=== PATIENT | male | born 1940 | race Caucasian/White ===

== ENCOUNTER 2019-04-18 07:38 | Outpatient (RCR) | payer MEDICARE, SELFPAY ==
--- NOTE | 2019-02-28 08:06 | PCWOUND ---
WOCN NOTE patient called to cancel appointment, Rescheduled for next week.
== END 2019-04-24 23:59 | disposition home or self-care (01) ==
LOC: ANHWOC 07:38
PROVIDERS: PCP Internal Medicine; Visit Provider Internal Medicine
DX: L03.116 Cellulitis of left lower limb (principal); R60.0 Localized edema
CPT/HCPCS: 99212; A9270; G0463

== ENCOUNTER → 2019-04-25 09:24 | Outpatient (CLI) | payer MEDICARE, SELFPAY ==
--- NOTE | ~2019-04-25 | XR_ITS ---
EXAMINATION: XR chest 2V EXAM DATE: 04/25/2019 09:45 INDICATION: Shortness of breath. TECHNIQUE: Frontal and lateral projections of the chest obtained and reviewed. Comparison is made to prior examination from 07/07/2018. FINDINGS: The lungs are clear. There are no pleural effusions. The cardiomediastinal silhouette is within normal limits. There is no pneumothorax suspected. The bones and soft tissues are unremarkab le. IMPRESSION: Sternotomy wires are present without findings to suggest sternal dehiscence. Multilead pa cemaker. The lungs are clear. There are no pleural effusions. The cardiomediastinal silhouette is w ithin normal limits. There is no pneumothorax suspected. There are old right rib fractures and ther e is diffuse idiopathic skeletal hyperostosis. Accounting for differences in technique, there is no significant interval change. IMPRESSION: No acute cardiopulmonary findings. Reviewed, dictated and finalized at location B. 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 Multilead pacemaker. The lungs are clear. There are no pleural effus ions. The cardiomediastinal silhouette is within normal limits. There is no p neumothorax suspected. There are old right rib fractures and there is diffuse idiopathic skeletal hyperostosis. Accounting for differences in technique, the re is no significant interval change.
== END ==
PROVIDERS: PCP Internal Medicine; Visit Provider Internal Medicine
DX: R06.02 Shortness of breath (principal); E11.22 Type 2 diabetes mellitus with diabetic chronic kidney disease; N18.3 Chronic kidney disease, stage 3 (moderate)
CPT/HCPCS: 71046

== ENCOUNTER 2019-05-23 07:21 | Outpatient (RCR) | payer MEDICARE, SELFPAY | END 2019-07-31 23:59 | disposition home or self-care (01) | LOC: ANHWOC 07:21 | PROVIDERS: PCP Internal Medicine; Visit Provider Internal Medicine | DX: L03.116 Cellulitis of left lower limb (principal) | CPT/HCPCS: 99212; G0463 ==

== ENCOUNTER 2019-12-08 08:01 | Outpatient (RCR) | payer MEDICARE, SELFPAY ==
[2019-12-08 09:00] VITALS: BMI 42.3
== END 2020-02-22 13:32 | disposition home or self-care (01) ==
LOC: ANHWOC 08:01
PROVIDERS: PCP Internal Medicine; Visit Provider Internal Medicine
DX: L98.9 Disorder of the skin and subcutaneous tissue, unspecified (principal)
CPT/HCPCS: 99213; G0463

== ENCOUNTER 2019-12-13 08:13 | Outpatient (CLI) | payer MEDICARE, SELFPAY ==
--- NOTE | ~2019-12-13 | XR_ITS ---
EXAMINATION: XR chest 2V EXAM DATE: 12/13/2019 08:43 INDICATION: Cough. TECHNIQUE: Frontal and lateral projections of the chest obtained and reviewed. Comparison is made to prior examination from 04/25/2019. FINDINGS: Sternotomy wires are present without findings to suggest sternal dehiscence. There is quad ruple lead lead pacemaker/AICD device. There are old right-sided rib fractures. The lungs are clear. There are no pleural effusions. The cardiomediastinal silhouette is within normal limits. There is no pneumothorax suspected. Patient has diffuse idiopathic skeletal hyperostosis (DISH). Accounting for differences in technique, there is no significant interval change. IMPRESSION: No acute cardiopulmonary findings. Reviewed, dictated and finalized at location A.
== END 2019-12-13 08:14 | disposition home or self-care (01) ==
PROVIDERS: PCP Internal Medicine; Visit Provider Internal Medicine
DX: R05 Cough (principal)
CPT/HCPCS: 71046

== ENCOUNTER 2019-12-14 00:29 | Inpatient (IN) | payer MEDICARE, SELFPAY ==
[2019-12-14] VITALS (9 sets, daily range): BP systolic 100–146; BP diastolic 44–76; PULSE 74–117; RESP 12–27; TEMP 36.1–37; O2SAT 90–98; BMI 41.8
--- NOTE | ~2019-12-14 | US_ITS ---
EXAMINATION: US right upper quadrant DATE: 12/14/2019 09:30 INDICATION: Acute cholecystitis. TECHNIQUE: Multiple grayscale and Doppler ultrasound images of the abdomen were obtained. COMPARISON: CT abdomen and pelvis 12/14/2019 FINDINGS: The visualized portions of the head and body of the pancreas are normal. There is diffuse h epatic steatosis. The gallbladder is normal in size and contains gallstones. Gallbladder wall thicken ing is noted. There is no sonographic Nagy sign, but the patient has been receiving pain medication . The common duct is normal and measures 5 mm. IMPRESSION: 1. Acute cholecystitis. 2. Diffuse hepatic steatosis. Reviewed, dictated and finalized at location A.
--- NOTE | ~2019-12-14 | CT_ITS ---
EXAMINATION: CT abdomen pelvis wo con EXAM DATE: 12/14/2019 01:14 INDICATION: Right upper quadrant, epigastric pain for 5 days. TECHNIQUE: Spiral CT of the abdomen and pelvis was performed without contrast. Axial, coronal and s agittal images were reviewed. The dose-length product (DLP) for this examination was 1681.38 mGy-cm. The exposure was tailored according to patient size (auto mA exposure control), and iterative recon struction (ASIR) was used as additional dose reduction technique. There is no prior study for compar jada. FINDINGS: The liver, spleen, adrenal glands and pancreas are unremarkable. There is cholelithiasis w ith moderate inflammation surrounding the gallbladder, appearance consistent with acute cholecystitis . There is no nephrolithiasis or hydronephrosis. There is moderate prostatomegaly. The bladder is unremarkable. There is no retroperitoneal or pelvic lymphadenopathy. Small to moderate bilateral i nguinal fat-containing hernias. Moderate scattered aortic arteriosclerotic disease. The appendix is normal. The stomach and small bowel are unremarkable. There is expected amount of c olonic stool. No free intraperitoneal gas. Small right pleural effusion with adjacent subsegmenta l atelectasis. Sternotomy wires, pacemaker. The lung bases are unremarkable. There are no osteoblas tic or osteolytic lesions identified. Thoracic diffuse idiopathic skeletal hyperostosis. 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 Old right-sided rib fractures. IMPRESSION: 1. Acute cholecystitis. 2. Small right pleural effusion, adjacent atelectasis. 3. Other chronic findings. Reviewed, dictated and finalized at location A.
--- NOTE | ~2019-12-14 | US_ITS ---
EXAMINATION: US perc cholecystostomy w imag DATE: 12/15/2019 14:40 INDICATION: Acute cholecystitis. TECHNIQUE: The procedure including the risks, benefits, and alternatives was discussed with the patie nt. Risks discussed included bleeding including hemobilia, infection, and bile peritonitis. Oral and written consent were obtained. A timeout was performed to verify the patient's name, date of , and procedure to be performed. The patient was confirmed to be receiving appropriate antibiotic cov erage. The skin overlying the liver and gallbladder was prepped and draped in usual sterile fashion. Anesthetic was administered with 1% lidocaine subcutaneously. An 8.5 Fr catheter was inserted thro ugh liver parenchyma into the gallbladder by trocar technique. The metal stiffener and trocar needle were removed, and the pigtail tip was locked. Bile was aspirated and sent for culture. The catheter w as stitched to the skin with suture. There were no immediate complications. FINDINGS: Ultrasound images demonstrate the catheter within the gallbladder. 5 mL bile was aspirated. IMPRESSION: 1. Successful ultrasound-guided cholecystostomy tube placement. 2. 5 mm black bile was sent for aerobic and anaerobic cultures. 3. The catheter will be managed by Dr. Lobo. A catheter cholangiogram may be performed not less th an 48 hours after tube placement if clinically indicated to assess cystic duct patency. If cholecyste ctomy is not eventually performed and the infectious episode has resolved, the tube may be removed ov er a guidewire, preferably not less than 3 weeks after placement to allow time for a mature catheter tract to form to prevent bile leakage and peritonitis. Reviewed, dictated and finalized at location A. IMPRESSION: 1. Successful ultrasound-guided cholecystostomy tube placement. 2. 5 mm black bile was sent for aerobic and anaerobic cultures. 3. The catheter will be managed by Dr. Lobo. A catheter cholangiogram may be performed not less than 48 hours after tube placement if clinically indicated to assess cystic duct patency. If cholecystectomy is not eventually performed a nd the infectious episode has resolved, the tube may be removed over a guidewir e, preferably not less than 3 weeks after placement to allow time for a mature catheter tract to form to prevent bile leakage and peritonitis.
--- NOTE | 2019-12-14 00:50 | PC.NURSE ---
Pt states he is in too much pain to urinate at this time. will try again when he feels better.
[2019-12-14] MEDS: MORPHINE SULFATE (*CRX) 4 MG/ML INJ IV PUSH ×5 (00:53→22:45)
[2019-12-14] MEDS: ONDANSETRON INJ 4 MG/2 ML VIAL IV PUSH (00:53)
[2019-12-14 01:11] LABS: Basophils Absolute Auto 0.1 K/mm3 (0.0-0.1); Basophils Percent Auto 0.5 % (0.2-1.2); Hematocrit 40.3 % (42.0-52.0); Hemoglobin 13.5 g/dL (14.0-18.0); Immature Granulocyte Absolute 0.35 K/mm3 (0.00-0.031); Immature Granulocyte Percent A 1.6 % (0-0.5); Lymphocytes Absolute Auto 1.56 K/mm3 (0.9-3.2); Mean Corpuscular HGB Conc 33.5 g/dl (32-36); Mean Corpuscular Hemoglobin 28.8 pg (26-34); Mean Corpuscular Volume 86.1 fl (80-100); Mean Platelet Volume 10.7 fl (7.4-10.4); Monocytes Absolute Auto 1.9 K/mm3 (0.1-0.6); Monocytes Percent Auto 8.2 % (2.6-8.5); Neutrophils Absolute Auto 18.6 K/mm3 (1.3-6.7); Neutrophils Percent Auto 82.7 % (45.5-73.1); Platelet Count Result 223 k/mm3 (150-375); Red Blood Count 4.68 M/mm3 (4.6-6.20); Red Cell Distribution Width 13.7 % (11.5-14.5); White Blood Count 22.4 K/mm3 (4.5-10.0)
--- NOTE | 2019-12-14 01:50 | ED.ABDPAIN ---
HPI - Abdominal Pain General Chief Complaint: Abdominal Pain Stated Complaint: abd pain Time Seen by Provider: 12/14/19 00:41 History of Present Illness HPI narrative: Patient is a 79-year-old male who presents ER with upper abdominal pain. Intermittent over the last 5 days but markedly worsened this evening. It definitely worsens whenever he eats something. Pain is nonradiating. Worse with any type of movement. He had episodes of emesis this evening. Denies fevers or chills or sweats. No known gallbladder disease. Patient takes Xarelto and Plavix, his last dose of each medication was at 5 PM on 12/13/2019. Related Data Home Medications Medication Instructions Recorded Confirmed aspirin 81 mg PO DAILY 01/11/19 12/14/19 clopidogrel 75 mg PO DAILY 01/11/19 12/14/19 eplerenone 25 mg PO DAILY 01/11/19 12/14/19 finasteride 5 mg PO DAILY 01/11/19 12/14/19 fluticasone propionate 1 puff INHALATION DAILY 01/11/19 12/14/19 insulin aspart U-100 [Novolog 26 unit SUBCUT TID 01/11/19 12/14/19 U-100 Insulin aspart] insulin glargine 53 unit SUBCUT HS 01/11/19 12/14/19 insulin glargine 60 unit SUBCUT QAM 01/11/19 12/14/19 nitroglycerin 0.4 mg SUBLINGUAL PRN PRN 01/11/19 12/14/19 omega 3-auo-vvk-fish oil [Fish Oil] 1 cap PO DAILY 01/11/19 12/14/19 pantoprazole 40 mg PO QAM 01/11/19 12/14/19 potassium chloride 20 meq PO BID 01/11/19 12/14/19 sacubitril-valsartan 1 tablet PO BID 01/11/19 12/14/19 simvastatin 20 mg PO HS 01/11/19 12/14/19 tamsulosin 0.8 mg PO HS 01/11/19 12/14/19 loratadine 10 mg tablet 10 mg PO DAILY 04/11/19 12/14/19 ranolazine 1,000 mg 1,000 mg PO Q12H 04/11/19 12/14/19 tablet,extended release,12 hr torsemide 20 mg tablet 40 mg PO QAM tablet 04/11/19 12/14/19 carvedilol 3.125 mg PO BID 12/14/19 12/14/19 rivaroxaban [Xarelto] 20 mg PO QPM 12/14/19 12/14/19 Allergies Allergy/AdvReac Type Severity Reaction Status Date / Time metformin Allergy Mild Nausea and Verified 12/14/19 00:48 Vomiting atorvastatin Allergy Unknown Swelling Verified 12/14/19 04:58 iodine Allergy Unknown Hives Verified 12/14/19 00:48 iohexol Allergy Unknown Hives Verified 12/14/19 00:48 [From CONTRAST - CT, XRAY] meloxicam Allergy Unknown Unknown Verified 12/14/19 00:48 spironolactone Allergy Unknown Other Verified 12/14/19 00:48 Review of Systems Review of Systems: All systems reviewed & are unremarkable except as noted in HPI and below Constitutional: Constitutional: Denies chills, Denies fever(s) and Denies weakness ENT: Denies nasal congestion and Denies sore throat Cardiovascular: Cardiovascular: Denies chest pain, Denies rapid heart rate and Denies radiating jaw, neck or arm pain Respiratory: Respiratory: Denies cough and Denies dyspnea Gastrointestinal: Gastrointestinal: Reports abdominal pain, Denies diarrhea, Reports nausea and Reports vomiting PMFSH Past Medical History Medical History BPH (benign prostatic hyperplasia) CAD (coronary artery disease) Chronic combined systolic and diastolic CHF (congestive heart failure) CKD stage 3 due to type 2 diabetes mellitus Diabetes Dyslipidemia Essential hypertension Paroxysmal A-fib Surgical History Surgical History Hx of CABG Pacemaker Family History Family History Mother Diabetes mellitus Hypertension Sibling Diabetes mellitus Family history of obesity Hypertension Social History Social History Smoking packs per day: 4 Smoking cigarettes per day: 80.0 Years smoked: 8 Smoking pack-years: 32.00 Smoking status: Former smoker Tobacco type: cigarettes Alcohol intake: former Substance use: never Gender identity (if verbalized by the patient): Male Spiritual care concerns: No Exam Narrative: Exam Narrative: GENERAL: Uncomfortable
[2019-12-14 01:53] LABS: Add Urine Microscopic? YES; Appearance Urine Clear (Clear); Bilirubin Urine Negative (Negative); Blood Urine Negative (Negative); Color Urine Yellow (Yellow); Glucose Urine UA Negative (Negative); Ketones Urine Negative (Negative); Leukocyte Esterase Ur Negative LEU/UL (Negative); Mucus Urine Rare /lpf; Nitrate Urine Negative (Negative); Protein Urine 1+ mg/dL (Negative); RBC Urine 0-2 /hpf (0-2); Specific Grav Ur 1.014 (1.001-1.035); Squamous Epithelial Cell Urine Rare /hpf (Few); Urobilinogen Urine Negative mg/dL (<2.0); WBC Urine 0-3 /hpf
--- NOTE | 2019-12-14 01:56 | PC.NURSE ---
Pt. requesting medications. ERP notified. No further orders
[2019-12-14 02:01] LABS: Alanine Aminotransferase 17 U/L (4-50); Albumin Level 4.2 g/dL (3.5-5.1); Alkaline Phosphatase 84 U/L (38-126); Anion Gap 11 mmol/L (8-16); Aspartate Amino Transferase 24 U/L (17-59); Bilirubin,Total 1.3 mg/dL (0.2-1.3); Blood Urea Nitrogen 22 mg/dL (9-20); Calcium 9.5 mg/dL (8.4-10.2); Carbon Dioxide 28 mmol/L (22-30); Chloride 98 mmol/L (98-107); Estimated CRCL calculation 48 ml/min; Estimated Glomerular Filt Rate 45; Glucose 147 mg/dL (75-110); Lipase 32 U/L (23-300); Potassium 4.4 mmol/L (3.4-5.0); Sodium 137 mmol/L (137-145)
[2019-12-14] MEDS: SODIUM CHLORIDE 0.9% IV 1,000 ML 125 ML IV CONT (03:30)
--- NOTE | 2019-12-14 03:40 | ADMGEN ---
This patient, José Luis Zaidi Sr., was admitted to [facility] Surg Room 321-01. Patient/family oriented to hospital policies and general routines including ID bracelet, bed and alarms, visiting hours, pain management, procedures, bathroom and other care routines, personal items, smoking policy, room service/diet, and visiting hours. Valuables list has been completed. Information on how to activate the Rapid Response Team has been discussed. Patient/Family are encouraged to report perceived risks to care and to ask questions if they do not understand what they are told or what they should do.
--- NOTE | 2019-12-14 04:05 | PM.IMHP ---
H&P: HPI History of Present Illness Date/Time: 12/14/19 04:05 Chief complaint: cholecystitis Narrative: This is a pleasant 79-year-old morbidly obese diabetic male with known history of coronary artery disease status post CABG x3, s/p [place], combined systolic and diastolic heart failure, and paroxysmal atrial fibrillation on chronic Xarelto therapy among several other comorbidities who presented to the hospital with a complaint of right sided abdominal pain over the past 5 days. The patient describes that he started to have right-sided abdominal pain on Thursday evening and believes he may had cracked a rib. He called his PCP who had him undergo a chest x-ray which was unremarkable and he was told to call his PCP if his discomfort did not resolve within a week. Tonight he decided to come to the hospital as he was having severe right upper abdominal pain with associated nausea and vomiting this evening. He denies any fever, chills, chest pain, dysuria, hematuria, diarrhea, or rectal bleeding. patient has chronic lower extremity swelling which has not changed. patient was evaluated emergency room this evening and CT abdomen pelvis demonstrated cholelithiasis as well as jeanne cholecystic fat stranding in the right upper quadrant adjacent to the gallbladder suspicious for acute cholecystitis. Routine labs [place] [address]. ER provider has consulted general surgery who has asked that we admit the patient to the hospital and they will evaluate him in the morning. ER physician has treated the patient with Zosyn IV. Review of Systems Review of Systems: All systems reviewed & are unremarkable except as noted in HPI and below PMFSH Past Medical History Medical History BPH (benign prostatic hyperplasia) CAD (coronary artery disease) Chronic combined systolic and diastolic CHF (congestive heart failure) CKD stage 3 due to type 2 diabetes mellitus Diabetes Dyslipidemia Essential hypertension Paroxysmal A-fib Surgical History Surgical History Hx of CABG Pacemaker Family History Family History Mother Diabetes mellitus Hypertension Sibling Diabetes mellitus Family history of obesity Hypertension Social History Social History Smoking packs per day: 4 Smoking cigarettes per day: 80.0 Years smoked: 8 Smoking pack-years: 32.00 Smoking status: Former smoker Tobacco type: cigarettes Alcohol intake: former Substance use: never Gender identity (if verbalized by the patient): Male Spiritual care concerns: No Meds Home Medications and Allergies Home Medications Medication Instructions Recorded Confirmed Type aspirin 81 mg PO DAILY 01/11/19 12/08/19 History carvedilol 12.5 mg PO BID 01/11/19 12/08/19 History clopidogrel 75 mg PO DAILY 01/11/19 12/08/19 History dextran 70-hypromellose 1 drp OPHTHALMIC (EYE) 4-6XD PRN 01/11/19 12/08/19 History eplerenone 25 mg PO DAILY 01/11/19 12/08/19 History finasteride 5 mg PO DAILY 01/11/19 12/08/19 History fluticasone propionate 1 puff INHALATION DAILY 01/11/19 12/08/19 History insulin aspart U-100 [Novolog 18 unit SUBCUT TID 01/11/19 12/08/19 History U-100 Insulin aspart] insulin glargine 55 unit SUBCUT HS 01/11/19 12/08/19 History insulin glargine 60 unit SUBCUT QAM 01/11/19 12/08/19 History nitroglycerin 0.4 mg SUBLINGUAL PRN PRN 01/11/19 12/08/19 History omega 1-uvg-ycf-fish oil [Fish Oil] 1 cap PO DAILY 01/11/19 12/08/19 History pantoprazole 40 mg PO QAM 01/11/19 12/08/19 History potassium chloride 20 meq PO BID 01/11/19 12/08/19 History sacubitril-valsartan 1 tablet PO BID 01/11/19 12/08/19 History simvastatin 20 mg PO HS 01/11/19 12/08/19 History tamsulosin 0.8 mg PO HS 01/11/19 12/08/19 History loratadine 10 mg
[2019-12-14 04:46] LABS: Lactic Acid Reflex 0.8 mmol/L (0.7-2.1)
[2019-12-14] MEDS: SODIUM CHLORIDE 0.9% IV 1,000 ML 70 ML IV CONT ×2 (05:17→21:09)
[2019-12-14] MEDS: PANTOPRAZOLE SODIUM IV 40 MG VIAL IV PUSH (07:48)
--- NOTE | 2019-12-14 13:09 | PM.IMPN ---
Progress Note: A&P Assessment and Plan (1) Acute cholecystitis: Code(s): K81.0 - Acute cholecystitis Status: Acute Assessment and Plan: The patient has been admitted for observation to med surg, NPO, bowel rest, continue wide-spectrum antibiotics with IV Zosyn, blood cultures pending. Right upper quadrant ultrasound showed acute cholecystitis, diffuse hepatic steatosis. General surgery has been consulted by ER provider. Appreciate general surgery recommendations. Continue monitoring the patient. Pain control with IV narcotic medications, antiemetics, antipyretics.. (2) Acute on chronic renal failure: Code(s): N17.9 - Acute kidney failure, unspecified; N18.9 - Chronic kidney disease, unspecified Status: Acute Assessment and Plan: Will lightly hydrate the patient as he does have combined systolic and diastolic heart failure since he is NPO and with renal function. Urinalysis showed 1+ Protein and 5-9 hylan casts Monitor urine output and renal function. Renally dose medications. Avoid nephrotoxic agents. (3) Leukocytosis: Code(s): D72.829 - Elevated white blood cell count, unspecified Status: Acute Assessment and Plan: Appears to be secondary to acute cholecystitis. Continue broad-spectrum IV antibiotics. Monitor CBCD (4) Paroxysmal A-fib: Code(s): I48.0 - Paroxysmal atrial fibrillation Status: Chronic Assessment and Plan: Resume home medications when appropriate in after surgery consult on the patient. Currently rate controlled. (5) Chronic anticoagulation: Code(s): Z79.01 - senior care (current) use of anticoagulants Status: Chronic Assessment and Plan: We will hold Xarelto as the patient likely will need a cholecystectomy for his acute cholecystitis. (6) CAD (coronary artery disease): Qualifiers: Coronary Disease-Associated Artery/Lesion type: [place] artery [place] vs. transplanted heart: [place] heart Associated angina: without angina Qualified Code(s): I25.10 - Atherosclerotic heart disease of [place] coronary artery without angina pectoris Code(s): I25.10 - Atherosclerotic heart disease of [place] coronary artery without angina pectoris Status: Chronic Assessment and Plan: No chest pain tonight. Resume aspirin, Plavix, Ranexa, and Coreg when the patient is eating again. (7) Dyslipidemia: Code(s): E78.5 - Hyperlipidemia, unspecified Status: Chronic Assessment and Plan: Resume simvastatin when the patient is eating again. (8) LEANDRO (obstructive sleep apnea): Code(s): G47.33 - Obstructive sleep apnea (adult) (pediatric) Status: Chronic Assessment and Plan: Continue home CPAP. (9) Essential hypertension: Code(s): I10 - Essential (primary) hypertension Status: Chronic Assessment and Plan: Stable. Resume home oral antihypertensives when the patient is eating again. Monitor blood pressure. P.r.n. IV hydralazine with parameters as ordered. (10) Chronic combined systolic and diastolic CHF (congestive heart failure): Code(s): I50.42 - Chronic combined systolic (congestive) and diastolic (congestive) heart failure Status: Chronic Assessment and Plan: Chronic. Euvolemic at this time. Monitor fluid status and daily weights. We will consider intermittent IV Lasix bolus if necessary. Resume home CHF medications when the patient is eating again. (11)
[2019-12-14 13:11] LABS: Glucose Point of Care 170 (65-105)
--- NOTE | 2019-12-14 15:05 | PCOTNOTE ---
OT evaluation attempted. Patient declined due to abdominal pain, he states that movement increases his pain. Nurse notified, will follow.
[2019-12-14] MEDS: BENZONATATE 100 MG CAPSULE PO ×2 (16:22→22:48)
--- NOTE | 2019-12-14 17:21 | PM.CNGS ---
Assessment and Plan Assessment and plan (1) Acute cholecystitis: Code(s): K81.0 - Acute cholecystitis Status: Acute Assessment and Plan: With cholelithiasis by both CT and ultrasound I have discussed the risks, benefits, possible complications of further treatment of his acute cholecystitis. His episodes started on Thursday of last week more than 72 hours ago. This puts him at a high risk category for requiring an open cholecystectomy versus being able to do it laparoscopically. Patient is also high risk for any general anesthesia in view of his current respiratory status with a significant cough along with his known CHF and cardiac history. Therefore, I discussed with the patient and his daughter that I would recommend once his Xeralto has wore off that we consider performing an ultrasound-guided cholecystostomy tube drainage of the gallbladder and wait for him to have a little bit better health before proceeding to cholecystectomy if at all. Because his medical artist who has done many of his stents is in [place] at the [facility], Perhaps would be best to have his elective surgery done there with his medical artist available to monitor his heart and cardiac status pre and postoperatively. Doing the cholecystostomy I think will perhaps allow us to temporize and then work with them to have patient have the procedure done where his heart procedures have been done, since they may know his heart situation well. He can then get cardiac clearance for elective general anesthesia and have a general surgeon over there, that can coordinate with his medical artist, consider doing the procedure and removing the cholecystostomy tube at that time in the somewhere around 4 weeks to a month from now. They were amenable to same and I will discuss this with Radiology and see how soon after his last doses are also they would be comfortable proceeding. 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 Apparently has stage 2 chronic kidney disease by history (4) Essential hypertension: Code(s): I10 - Essential (primary) hypertension Status: Chronic Assessment and Plan: long-term, Rx per hospitalist (5) CKD stage 3 due to type 2 diabetes mellitus: Code(s): E11.22 - Type 2 diabetes mellitus with diabetic chronic kidney disease; N18.3 - Chronic kidney disease, stage 3 (moderate) Status: Acute (6) Dyslipidemia: Code(s): E78.5 - Hyperlipidemia, unspecified Status: Chronic (7) CAD (coronary artery disease): Qualifiers: Associated angina: without angina Coronary Disease-Associated Artery/Lesion type: [place] artery [place] vs. transplanted heart: [place] heart Qualified Code(s): I25.10 - Atherosclerotic heart disease of [place] coronary artery without angina pectoris Code(s): I25.10 - Atherosclerotic heart disease of [place] coronary artery without angina pectoris Status: Chronic Assessment and Plan: continue home medications when no longer NPO other than anticoagulants and the anti-platelet therapy since we may need to do a procedure. (8) Hx of CABG: Code(s): Z95.1 - Presence of aortocoronary bypass graft Status: Acute (9) Paroxysmal A-fib: Code(s): I48.0 - Paroxysmal atrial fibrillation Status: Chronic (10) LEANDRO (obstructive sleep apnea): Code(s): G47.33 - Obstructive sleep apnea (adult) (pediatric) Status: Chronic (11) Chronic combined systolic and diastolic CHF (congestive heart failure): Code(s): I50.42 - Chronic combined
[2019-12-14 17:48] LABS: Glucose Point of Care 154 (65-105)
[2019-12-14] MEDS: NEOMYCIN/POLYMYXIN/BACITRACIN OINTMENT 15 GM TUBE 1 APPLIC TOPICAL (18:55)
[2019-12-14] MEDS: FLUTICASONE PROPIONATE 0.05% NA SPR 16 GM BTL (*BKC) 1 SPRAY NASAL (21:07)
[2019-12-15] VITALS (7 sets, daily range): BP systolic 128–145; BP diastolic 50–69; PULSE 88–104; RESP 18–22; TEMP 36.6–37.4; O2SAT 90–94
[2019-12-15] MEDS: INSULIN ASPART (*BKC) 100 UNITS/ML SUB-Q (00:21)
[2019-12-15 00:35] LABS: Glucose Point of Care 241 (65-105)
[2019-12-15 05:59] LABS: Glucose Point of Care 175 (65-105)
[2019-12-15 06:25] LABS: Basophils Absolute Auto 0.1 K/mm3 (0.0-0.1); Basophils Percent Auto 0.5 % (0.2-1.2); Eosinophils Absolute Auto 0.1 K/mm3 (0-0.3); Eosinophils Percent Auto 0.5 % (0-4.4); Hematocrit 37.6 % (42.0-52.0); Hemoglobin 12.4 g/dL (14.0-18.0); Immature Granulocyte Absolute 0.26 K/mm3 (0.00-0.031); Immature Granulocyte Percent A 1.5 % (0-0.5); Lymphocytes Absolute Auto 1.68 K/mm3 (0.9-3.2); Mean Corpuscular Hemoglobin 28.6 pg (26-34); Mean Corpuscular Volume 86.6 fl (80-100); Monocytes Absolute Auto 1.8 K/mm3 (0.1-0.6); Monocytes Percent Auto 10.6 % (2.6-8.5); Neutrophils Absolute Auto 12.9 K/mm3 (1.3-6.7); Neutrophils Percent Auto 76.9 % (45.5-73.1); Platelet Count Result 210 k/mm3 (150-375); Red Blood Count 4.34 M/mm3 (4.6-6.20); Red Cell Distribution Width 13.8 % (11.5-14.5); White Blood Count 16.8 K/mm3 (4.5-10.0)
[2019-12-15 06:31] LABS: INR 1.7; Prothrombin Time 19.6 Seconds (11.1-14.7)
[2019-12-15 06:35] LABS: Lipase 35 U/L (23-300); Magnesium 2.3 mg/dL (1.6-2.3)
[2019-12-15 06:37] LABS: Alanine Aminotransferase 20 U/L (4-50); Albumin Level 3.6 g/dL (3.5-5.1); Alkaline Phosphatase 80 U/L (38-126); Anion Gap 11 mmol/L (8-16); Aspartate Amino Transferase 25 U/L (17-59); Bilirubin,Total 1.2 mg/dL (0.2-1.3); Blood Urea Nitrogen 29 mg/dL (9-20); Calcium 8.8 mg/dL (8.4-10.2); Carbon Dioxide 25 mmol/L (22-30); Chloride 99 mmol/L (98-107); Estimated CRCL calculation 45 ml/min; Estimated Glomerular Filt Rate 42; Glucose 196 mg/dL (75-110); Sodium 135 mmol/L (137-145)
[2019-12-15] MEDS: MORPHINE SULFATE (*CRX) 4 MG/ML INJ IV PUSH ×3 (06:45→12:51)
[2019-12-15 08:37] LABS: Glucose Point of Care 209 (65-105)
[2019-12-15] MEDS: FLUTICASONE PROPIONATE 0.05% NA SPR 16 GM BTL (*BKC) 1 SPRAY NASAL ×2 (09:32→21:30)
--- NOTE | 2019-12-15 09:44 | PM.IMPN ---
Progress Note: A&P Assessment and Plan (1) Acute cholecystitis: Code(s): K81.0 - Acute cholecystitis Status: Acute Assessment and Plan: The patient has been admitted for observation to med surg, NPO, bowel rest, continue wide-spectrum antibiotics with IV Zosyn, blood cultures pending. Right upper quadrant ultrasound showed acute cholecystitis, diffuse hepatic steatosis. General surgery evaluated the patient and since his symptoms began greater than 48 hours ago and with his cardiac history. the plan is for the patient to go for a percutaneous drain of the gallbladder to be placed today by IR. 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 Patient is still having pain on states it is slightly better today. He was able to tolerate clear liquid diet last night. He is NPO at this time for perc Drain Continue monitoring the patient. Pain control with IV narcotic medications, antiemetics, antipyretics. 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 creatinine is still elevated is morning 1.6. His labs from over 1 year ago showing normal creatinine of 0.9-1. Will continue monitoring once he has percutaneous drain in place he will be given food in be able to drink. At this time we are being cautious due to CHF history. Urinalysis showed 1+ Protein and 5-9 hylan casts Monitor urine output and renal function. Renally dose medications. Avoid nephrotoxic agents. (3) Leukocytosis: Onset Date: ~11/2019 Code(s): D72.829 - Elevated white blood cell count, unspecified Status: Acute Assessment and Plan: Appears to be secondary to acute cholecystitis. Improved with IV antibiotics. Continue broad-spectrum IV antibiotics. Monitor CBCD (4) Paroxysmal A-fib: Code(s): I48.0 - Paroxysmal atrial fibrillation Status: Chronic Assessment and Plan: Resume home medications when appropriate in after surgery consult on the patient. Currently rate controlled. (5) Chronic anticoagulation: Onset Date: Unknown Code(s): Z79.01 - terminal operations supervisor (current) use of anticoagulants Status: Chronic Assessment and Plan: We will hold Xarelto as the patient likely will need a cholecystectomy for his acute cholecystitis. (6) CAD (coronary artery disease): Qualifiers: Coronary Disease-Associated Artery/Lesion type: [place] artery [place] vs. transplanted heart: [place] heart Associated angina: without angina Qualified Code(s): I25.10 - Atherosclerotic heart disease of [place] coronary artery without angina pectoris Code(s): I25.10 - Atherosclerotic heart disease of [place] coronary artery without angina pectoris Status: Chronic Assessment and Plan: No chest pain tonight. Resume aspirin, Plavix, Ranexa, and Coreg when the patient is eating again. (7) Dyslipidemia: Code(s): E78.5 - Hyperlipidemia, unspecified Status: Chronic Assessment and Plan: Resume simvastatin when the patient is eating again. (8) LEANDRO (obstructive sleep apnea): Code(s): G47.33 - Obstructive sleep apnea (adult) (pediatric) Status: Chronic Assessment
--- NOTE | 2019-12-15 09:50 | PM.PNGS ---
Progress Note: A&P Assessment and Plan (1) Acute cholecystitis: Onset Date: ~12/11/19 Code(s): K81.0 - Acute cholecystitis Status: Acute Assessment and Plan: Have discussed with Radiology and hospitalist service. In view of the patient's significant medical comorbidities and the time since the onset of his acute cholecystitis I believe he is best served with a percutaneous cholecystostomy tube placement. Will type and screen so that we could have platelets available if there were bleeding problems at the time of the procedure in view of the patient's Plavix use. This afternoon he will have been off his Xarelto and his Plavix for approximately 48 hours so we are planning to proceed sometime this afternoon with a percutaneous cholecystostomy tube placement. The risks, benefits,and possible complications of this have been discussed with the patient including the possibly of bleeding in view of his anticoagulants. He understands and wishes to proceed. 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 We are using SCD hose to help prevent DVT as he comes off his anticoagulation. (3) Leukocytosis: Onset Date: ~11/2019 Code(s): D72.829 - Elevated white blood cell count, unspecified Status: Acute Assessment and Plan: Most likely secondary to 1. Above. slightly improved overnight. (4) Acute on chronic renal failure: Onset Date: Unknown Code(s): N17.9 - Acute kidney failure, unspecified; N18.9 - Chronic kidney disease, unspecified Status: Acute (5) Diabetes: Onset Date: Unknown Qualifiers: Diabetes mellitus type: type 2 Diabetes mellitus terminal gauger insulin use: with chcf use Diabetes mellitus complication status: with circulatory complication Diabetes mellitus complication detail: with other circulatory complications Qualified Code(s): E11.59 - Type 2 diabetes mellitus with other circulatory complications; Z79.4 - assisted (current) use of insulin Code(s): E11.9 - Type 2 diabetes mellitus without complications Status: Chronic Assessment and Plan: Blood sugar still running in the 200s. (6) Chronic combined systolic and diastolic CHF (congestive heart failure): Onset Date: Unknown Code(s): I50.42 - Chronic combined systolic (congestive) and diastolic (congestive) heart failure Status: Chronic Assessment and Plan: Hospitalist Service is following and treating this. Additional Plan Patient has been seen by our wound clinic here as an outpatient. They will follow peripherally and will put in orders for his venous stasis ulcers on the right leg. Subjective Subjective Date/Time Seen: 12/15/19 08:50 patient is sitting up in bed when I arrived. States he still has a lot of epigastric and right upper quadrant pain. Is fairly well controlled with Q to our morphine. He is also receiving around the clock Tylenol. Patient's blood sugar was in the 200 this morning. He has not had a bowel movement since he arrived at the hospital. He is passing some flatus. Wishes to proceed with percutaneous cholecystostomy tube when all feel that it is safe. Review of Systems Constitutional: Constitutional: Reports as per HPI and Reports weakness ENT: Reports other (Mucous Membranes moist.) Cardiovascular: Cardiovascular: Denies chest pain and Reports dyspnea ( If he gets a coughing spell) Respiratory: Respiratory: Denies pain on inspiration, Reports dyspnea ( does have some if he coughs.), Denies stridor and Denies wheezing Gastrointestinal: Gastrointestinal: Reports abdominal pain ( Mainly right upper quadrant epigastric), Reports constipation, Reports dyspepsia, Denies nausea and Denies vomiting Genitourinary: Gen
[2019-12-15] MEDS: BENZONATATE 100 MG CAPSULE PO (11:09)
[2019-12-15] MEDS: NEOMYCIN/POLYMYXIN/BACITRACIN OINTMENT 15 GM TUBE 1 APPLIC TOPICAL (11:23)
[2019-12-15] MEDS: PANTOPRAZOLE SODIUM IV 40 MG VIAL IV PUSH (11:24)
[2019-12-15] MEDS: SILVERGEL (ELTA) 45 ML 1 APPLIC TOPICAL (11:24)
[2019-12-15] MEDS: SODIUM CHLORIDE 0.9% IV 1,000 ML 70 ML IV CONT (12:13)
[2019-12-15 12:57] LABS: Glucose Point of Care 226 (65-105)
--- NOTE | 2019-12-15 14:04 | PC.NURSE ---
On 12/15/19, the student, [ Rosario Jeffers], provided care and completed [facility] documentation on this patient. I have reviewed the student's documentation and agree with the findings.
[2019-12-15] MEDS: BISACODYL 10 MG SUPPOSITORY RECTAL (15:02)
--- NOTE | 2019-12-15 15:38 | PCPTNOTE ---
Mr. Zaidi unavailable for PT eval in am due to receiving a procedure. Attempt eval at a later time. Hayley Guillen PT
[2019-12-15 18:04] LABS: Glucose Point of Care 234 (65-105)
[2019-12-16] MEDS: INSULIN ASPART (*BKC) 100 UNITS/ML SUB-Q ×5 (00:28→23:43)
[2019-12-16 00:35] LABS: Glucose Point of Care 329 (65-105)
[2019-12-16] MEDS: MORPHINE SULFATE (*CRX) 4 MG/ML INJ IV PUSH ×3 (01:45→09:03)
[2019-12-16] MEDS: SODIUM CHLORIDE 0.9% IV 1,000 ML 70 ML IV CONT (05:43)
[2019-12-16 06:00] VITALS: BP 129/60; PULSE 72; RESP 18; TEMP 36.8; O2SAT 97
[2019-12-16 06:19] LABS: Glucose Point of Care 203 (65-105)
[2019-12-16 06:40] LABS: Basophils Absolute Auto 0.1 K/mm3 (0.0-0.1); Eosinophils Absolute Auto 0.2 K/mm3 (0-0.3); Eosinophils Percent Auto 1.9 % (0-4.4); Hematocrit 36.3 % (42.0-52.0); Hemoglobin 11.6 g/dL (14.0-18.0); Immature Granulocyte Absolute 0.15 K/mm3 (0.00-0.031); Immature Granulocyte Percent A 1.4 % (0-0.5); Lymphocytes Absolute Auto 1.55 K/mm3 (0.9-3.2); Lymphocytes Percent Auto 14.2 % (18.3-44.2); Mean Corpuscular Volume 90.8 fl (80-100); Mean Platelet Volume 10.5 fl (7.4-10.4); Monocytes Absolute Auto 1.2 K/mm3 (0.1-0.6); Monocytes Percent Auto 10.5 % (2.6-8.5); Neutrophils Absolute Auto 7.8 K/mm3 (1.3-6.7); Platelet Count Result 209 k/mm3 (150-375); Red Cell Distribution Width 13.9 % (11.5-14.5); White Blood Count 10.9 K/mm3 (4.5-10.0)
[2019-12-16 06:56] LABS: Alanine Aminotransferase 17 U/L (4-50); Albumin Level 3.5 g/dL (3.5-5.1); Alkaline Phosphatase 87 U/L (38-126); Anion Gap 9 mmol/L (8-16); Aspartate Amino Transferase 20 U/L (17-59); Bilirubin,Total 1.1 mg/dL (0.2-1.3); Blood Urea Nitrogen 37 mg/dL (9-20); Calcium 8.6 mg/dL (8.4-10.2); Carbon Dioxide 27 mmol/L (22-30); Chloride 99 mmol/L (98-107); Estimated CRCL calculation 45 ml/min; Estimated Glomerular Filt Rate 42; Glucose 228 mg/dL (75-110); Lipase 34 U/L (23-300); Potassium 4.1 mmol/L (3.4-5.0); Sodium 135 mmol/L (137-145)
--- NOTE | 2019-12-16 08:26 | PM.PNGS ---
Progress Note: A&P Assessment and Plan (1) Acute cholecystitis: Onset Date: ~12/11/19 Code(s): K81.0 - Acute cholecystitis Status: Acute Assessment and Plan: Have discussed with Radiology and hospitalist service. In view of the patient's significant medical comorbidities and the time since the onset of his acute cholecystitis I believe he is best served with a percutaneous cholecystostomy tube placement. Will type and screen so that we could have platelets available if there were bleeding problems at the time of the procedure in view of the patient's Plavix use. Patient underwent the ultrasound-guided tube placement yesterday afternoon without incident. Cultures are pending at this time period would recommend continuing Zosyn until cultures returned then outpatient oral antibiotics to complete a 10 day course could be decided upon based on the sensitivities from the cultures that were obtained from the bile at the time of his tube placement. His diet could be gradually advanced to diabetic low-fat diet. I also believe that in view of his significant cardiac disease he should consider having his elective laparoscopic cholecystectomy done at [facility] in [place] to see Dr. Bosch his district captain to get cardiac clearance and make plans for that procedure hopefully somewhere around 4 weeks from now. Patient and his daughter both realize that he is at high risk for this procedure. 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 We are using SCD hose to help prevent DVT as he comes off his anticoagulation. labs this morning 12/16/2019 appear to be stable. Therefore could start his Plavix this morning and resume his Xeralto with the evening dose tonight. (3) Leukocytosis: Onset Date: ~11/2019 Code(s): D72.829 - Elevated white blood cell count, unspecified Status: Acute Assessment and Plan: Most likely secondary to 1. Above. improved overnight. 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 (6) Chronic combined systolic and diastolic CHF (congestive heart failure): Onset Date: Unknown Code(s): I50.42 - Chronic combined systolic (congestive) and diastolic (congestive) heart failure Status: Chronic Assessment and Plan: Hospitalist Service is following and treating this. Additional Plan Patient has been seen by our wound clinic here as an outpatient. They will follow peripherally and will put in orders for his venous stasis ulcers on the right leg. Subjective Subjective Date/Time Seen: 12/16/19 08:26 Patient up in the bathroom this morning when I came by. States he did not have a bowel movement after the Dulcolax supp yesterday but feels as if he may this morning. Right upper quadrant pain has improved since placement of the cholecystostomy tube. He now tolerating a clear liquid diet. Review of Systems Constitutional: Constitutional: Rep
[2019-12-16 08:56] LABS: Glucose Point of Care 225 (65-105)
[2019-12-16] MEDS: SILVERGEL (ELTA) 45 ML 1 APPLIC TOPICAL (09:05)
[2019-12-16] MEDS: BENZONATATE 100 MG CAPSULE PO ×2 (09:05→21:00)
[2019-12-16] MEDS: FLUTICASONE PROPIONATE 0.05% NA SPR 16 GM BTL (*BKC) 1 SPRAY NASAL ×2 (09:05→20:49)
[2019-12-16] MEDS: NEOMYCIN/POLYMYXIN/BACITRACIN OINTMENT 15 GM TUBE 1 APPLIC TOPICAL (09:06)
[2019-12-16] MEDS: CLOPIDOGREL BISULFATE 75 MG TABLET PO (09:10)
[2019-12-16] MEDS: LORATADINE 10 MG TABLET PO (09:10)
[2019-12-16] MEDS: FLUTICASONE PROP 44 MCG (*SP) 10.6 GM 1 PUFF INHALATION (09:26)
--- NOTE | 2019-12-16 09:35 | PM.IMPN ---
Progress Note: A&P Assessment and Plan (1) Acute cholecystitis: Code(s): K81.0 - Acute cholecystitis Status: Acute Assessment and Plan: The patient has been admitted for observation to med surg, NPO, bowel rest, continue wide-spectrum antibiotics with IV Zosyn, blood cultures pending. Right upper quadrant ultrasound showed acute cholecystitis, diffuse hepatic steatosis. General surgery evaluated the patient and since his symptoms began greater than 48 hours ago and with his cardiac history, they decided to place a percutaneous drain of the gallbladder on 12/15/2019. Surgery once to continue monitoring his symptoms and output. Continue IV antibiotics until sensitivity results come back for gallbladder material culture. Dr. Lobo recommends the patient following up with his mason tender as an outpatient for cardiac clearance for surgery. Dr. Lobo also recommends the patient have surgery at [facility] where his mason tender is located in case there is any issues. We can still give him Dr. Lobo's information in case he wants to come here for surgery. Patient is feeling better after perc drain placed. Now with some increased pain secondary to coughing. He was able to tolerate clear liquid diet last night and this morning. Continue monitoring the patient. Pain control with IV narcotic medications, antiemetics, antipyretics. 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 creatinine is still elevated is morning 1.6. His labs from over 1 year ago showing normal creatinine of 0.9-1. He is now eating and drinking. I will continue IV fluid hydration 70 cc/hour and continue monitoring his fluid status. At this time he remains euvolemic. Monitor urine output and renal function. Renally dose medications. Avoid nephrotoxic agents. (3) Leukocytosis: Onset Date: ~11/2019 Code(s): D72.829 - Elevated white blood cell count, unspecified Status: Acute Assessment and Plan: Appears to be secondary to acute cholecystitis. Improved with IV antibiotics. Continue broad-spectrum IV antibiotics. Monitor CBCD (4) Paroxysmal A-fib: Code(s): I48.0 - Paroxysmal atrial fibrillation Status: Chronic Assessment and Plan: Patient is in AFib but is rate has been controlled. I discussed with surgery who feel he can restart his Xarelto this evening Will restart his blood pressure/beta-rod medications when we can. At this time I do not think his blood pressure would tolerate most of his meds. Continue monitoring. (5) Chronic anticoagulation: Onset Date: Unknown Code(s): Z79.01 - [facility] (current) use of anticoagulants Status: Chronic Assessment and Plan: Will restart Xarelto this evening and Plavix was restarted this morning after having perc drain placed yesterday. (6) CAD (coronary artery disease): Qualifiers: Associated angina: without angina Coronary Disease-Associated Artery/Lesion type: [place] artery [place] vs. transplanted heart: [place] heart Qualified Code(s): I25.10 - Atherosclerotic heart disease of [place] coronary artery without angina pectoris Code(s): I25.10 - Atherosclerotic heart disease of [place] coronary artery without angina pectoris Status: Chronic Assessment and Plan: No chest pain tonight. Will continue Plavix and Xarelto. Usually we do not use aspirin
--- NOTE | 2019-12-16 10:59 | PCDIET ---
Patient seen today for diabetic/low fat education. See Nutritional Teaching Intervention. Patient has my card for any further questions or concerns.
[2019-12-16] MEDS: PANTOPRAZOLE SODIUM IV 40 MG VIAL IV PUSH (11:30)
[2019-12-16] MEDS: HYDROcodone/acetaminophen (*CRX) 5-325 MG TABLET 1 TAB PO ×2 (11:30→19:27)
[2019-12-16 15:19] VITALS: BP 147/63; PULSE 82; RESP 20; TEMP 36.5; O2SAT 94
[2019-12-16] MEDS: RIVAROXABAN 20 MG TABLET PO (17:19)
[2019-12-16 17:30] VITALS: BP 123/65; PULSE 78; RESP 18; TEMP 36.6; O2SAT 96
[2019-12-16 18:38] LABS: Glucose Point of Care 332 (65-105)
[2019-12-16 18:46] LABS: Glucose Point of Care 340 (65-105)
[2019-12-16 19:48] LABS: SARS-CoV-2 RNA PCR Negative
[2019-12-16 20:00] VITALS: BP 132/62; PULSE 87; RESP 18; TEMP 36.9; O2SAT 96
[2019-12-16 23:48] LABS: Glucose Point of Care 354 (65-105)
[2019-12-17] MEDS: HYDROcodone/acetaminophen (*CRX) 5-325 MG TABLET 1 TAB PO ×2 (00:15→06:31)
[2019-12-17] MEDS: SODIUM CHLORIDE 0.9% IV 1,000 ML 70 ML IV CONT (03:14)
[2019-12-17 06:00] VITALS: BP 141/57; PULSE 68; RESP 20; TEMP 36.5; O2SAT 98
[2019-12-17] MEDS: INSULIN ASPART (*BKC) 100 UNITS/ML SUB-Q ×2 (06:31→12:38)
[2019-12-17 06:44] LABS: Glucose Point of Care 265 (65-105)
[2019-12-17 06:59] LABS: Hematocrit 35.1 % (42.0-52.0); Hemoglobin 11.5 g/dL (14.0-18.0); Mean Corpuscular HGB Conc 32.8 g/dl (32-36); Mean Corpuscular Hemoglobin 28.9 pg (26-34); Mean Corpuscular Volume 88.2 fl (80-100); Mean Platelet Volume 10.8 fl (7.4-10.4); Platelet Count Result 255 k/mm3 (150-375); Red Blood Count 3.98 M/mm3 (4.6-6.20); Red Cell Distribution Width 13.4 % (11.5-14.5); White Blood Count 7.8 K/mm3 (4.5-10.0)
[2019-12-17] MEDS: FLUTICASONE PROP 44 MCG (*SP) 10.6 GM 1 PUFF INHALATION (07:54)
[2019-12-17 08:10] LABS: Glucose Point of Care 278 (65-105)
[2019-12-17] MEDS: INSULIN ASPART (*BKC) 100 UNITS/ML 12 UNITS SUB-Q ×3 (08:34→17:43)
[2019-12-17 08:35] VITALS: PULSE 64
[2019-12-17] MEDS: carvediloL 3.125 MG TABLET PO ×2 (08:35→20:36)
[2019-12-17] MEDS: FINASTERIDE 5 MG TABLET PO (08:36)
[2019-12-17] MEDS: SACUBITRIL/VALSARTAN 24-26 MG TABLET 1 TAB PO ×2 (08:37→20:36)
[2019-12-17] MEDS: INSULIN GLARGINE (*BKC) 100 UNITS/ML 30 UNITS SUB-Q ×2 (08:37→20:39)
[2019-12-17 08:57] LABS: Anion Gap 5 mmol/L (8-16); Blood Urea Nitrogen 24 mg/dL (9-20); Calcium 8.6 mg/dL (8.4-10.2); Carbon Dioxide 31 mmol/L (22-30); Chloride 99 mmol/L (98-107); Estimated CRCL calculation 64 ml/min; Estimated Glomerular Filt Rate > 60; Glucose 279 mg/dL (75-110); Sodium 135 mmol/L (137-145)
--- NOTE | 2019-12-17 09:45 | PM.PNGS ---
Progress Note: A&P Assessment and Plan (1) Acute cholecystitis: Onset Date: ~12/11/19 Code(s): K81.0 - Acute cholecystitis Status: Acute Assessment and Plan: improved after cholecystostomy tube placement. Advance to diabetic diet. (2) Chronic anticoagulation: Onset Date: Unknown Code(s): Z79.01 - long term care pharmacist (current) use of anticoagulants Status: Chronic Assessment and Plan: Okay to resume anticoagulation Subjective Subjective Date/Time Seen: 12/17/19 09:45 Post Op day: 2 ( placement cholecystostomy tube) Patient reports: no new complaints, feels better, still having pain ( at catheter insertion site), tolerating liquids well and afebrile Review of Systems Constitutional: Constitutional: Denies chills, Denies fever(s), Denies headache(s) and Reports increased appetite Gastrointestinal: Gastrointestinal: Reports abdominal pain ( at catheter insertion site, much better overall), Denies GI cramping, Denies early satiety, Denies diarrhea, Denies nausea, Denies vomiting and Reports other ( complains of itching at insertion site.) Exam GI: Inspection: non-distended, incision ( Cholecystostomy tube in place with bloody drainage noted, dressing intact) and obesity GI Palp: Yes Soft to palpation, Yes Tenderness to palpation present (GI) ( minimal tenderness), No Guarding due to palpation present (GI) and No Rebound tenderness present Auscultation: normal bowel sounds Objective Data Vital Signs Vital Signs: Vital Signs - 24 hr 12/16/19 15:19 12/16/19 17:30 12/16/19 20:00 Temperature 36.5 C 36.6 C 36.9 C Pulse Rate 82 78 87 Respiratory Rate 20 18 18 Blood Pressure 147/63 H 123/65 132/62 Pulse Oximetry 94 96 96 12/17/19 06:00 12/17/19 08:35 Temperature 36.5 C Pulse Rate 68 64 Respiratory Rate 20 Blood Pressure 141/57 H Pulse Oximetry 98 Intake/Output Intake/Output: Intake & Output 12/14/19 12/15/19 12/16/19 12/17/19 23:59 23:59 23:59 23:59 Intake Total 1720 2190 3683 1367 Output Total 970 515 315 25 Balance 745 4815 0544 1342 Meds/Results Medications: Active Medications Generic Name Dose Route Start Last Admin Trade Name Freq PRN Reason Stop Dose Admin Hydrocodone Bitart/Acetaminophen 1 tab 12/16/19 08:51 12/17/19 06:31 [place] 5-325 Mg PO 1 tab Q4H PRN Administration Pain Rated 4-6 Albuterol 5 mg 12/14/19 04:17 Albuterol Sulf Neb 2.5mg/0.5ml INHALATION Q4HRT PRN Shortness Of Breath Benzonatate 100 mg 12/16/19 08:52 12/16/19 21:00 Tessalon [place] PO 100 mg TID PRN Administration Cough Carvedilol 3.125 mg 12/17/19 09:00 12/17/19 08:35 Coreg PO 3.125 mg Q12HR SUGEY Administration Clopidogrel Bisulfate 75 mg 12/16/19 09:00 12/16/19 09:10 Plavix PO 75 mg DAILY SUGEY Administration Dextrose 12.5 gm 12/14/19 04:15 Dextrose 50% Syringe IV PUSH PRN PRN Hypoglycemia Protocol Finasteride 5 mg 12/17/19 09:00 12/17/19 08:36 Proscar PO 5 mg DAILY SUGEY Administration Fluticasone Propionate 1 spray 12/14/19 21:00 12/16/19 20:49 Flonase 0.05% Nasal [place] NASAL 1 spray Q12HR SUGEY Administration Fluticasone Propionate 1 puff 12/16/19 09:00 12/17/19 07:54 Flovent INHALATION 1 puff DAILY SUGEY Administration Glucagon 1 mg 12/14/19 04:15 Glucagon For Inj IM PRN PRN Hypoglycemia Protocol Piperacillin/Tazobactam/Dextrose 3.375 gm in 50 mls @ 100 mls/hr 12/14/19 07:00 12/17/19 07:02 Zosyn 3.375 Gm/D5w 50ml Pm IVPB Infused Q6HR SUGEY Infusion Sodium Chloride 1,000 mls @ 70 mls/hr 12/14/19 04:15 12/17/19 06:49 Normal Saline Iv IV CONT 70 mls/hr .[id number] SUGEY Infusion Dextrose 1,000 mls @ 100 mls/hr 12/14/19 04:15 Dextrose 5% 1,000 Ml IVPB PRN PRN Hypoglycemia Protocol Insulin Aspart 2 - 5 units 12/14/19 06:00 12/17/19 06:31 Novolog SUB-Q 3 units Q6HR SUGEY Administr
[2019-12-17] MEDS: FLUTICASONE PROPIONATE 0.05% NA SPR 16 GM BTL (*BKC) 1 SPRAY NASAL ×2 (11:58→20:36)
[2019-12-17] MEDS: LORATADINE 10 MG TABLET PO (11:58)
[2019-12-17] MEDS: CLOPIDOGREL BISULFATE 75 MG TABLET PO (11:58)
[2019-12-17] MEDS: SILVERGEL (ELTA) 45 ML 1 APPLIC TOPICAL (11:59)
[2019-12-17] MEDS: NEOMYCIN/POLYMYXIN/BACITRACIN OINTMENT 15 GM TUBE 1 APPLIC TOPICAL (11:59)
[2019-12-17] MEDS: PANTOPRAZOLE SODIUM IV 40 MG VIAL IV PUSH (11:59)
[2019-12-17] MEDS: BENZONATATE 100 MG CAPSULE PO (12:00)
--- NOTE | 2019-12-17 12:11 | P.PNIM_ITS ---
Progress Note: A&P Assessment and Plan (1) Acute cholecystitis: Code(s): K81.0 - Acute cholecystitis Status: Acute Assessment and Plan: The patient has been admitted for observation to med surg, NPO, bowel rest, continue wide-spectrum antibiotics with IV Zosyn, blood cultures pending. * Right upper quadrant ultrasound showed acute cholecystitis, diffuse hepatic steatosis. * General surgery evaluated the patient and since his symptoms began greater than 48 hours ago and with his cardiac history, they decided to place a percutaneous drain of the gallbladder on 12/15/2019. * Dr. Lobo recommends the patient following up with his assembler cards and announcements as an outpatient for cardiac clearance for surgery. Dr. Lobo also recommends the patient have surgery at [facility] where his assembler cards and announcements is located in case there is any issues. We can still give him Dr. Lobo's information in case he wants to come here for surgery. * Patient is feeling better after perc drain placed. Advance diet to diabetic. * Surgery wants to continue monitoring his symptoms and output. * GB Sludge culture showing no growth at this time. * Continue IV antibiotics until sensitivity results come back for gallbladder material culture. Continue monitoring the patient. Pain control with IV narcotic medications, antiemetics, antipyretics. 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 * creatinine improved to 1.1. His labs from over 1 year ago showing normal creatinine of 0.9-1. * He is now eating and drinking without issues. * Will stop IV Fluids and consider restarting diuretics in the morning * At this time he remains euvolemic. Monitor urine output and renal function. Renally dose medications. Avoid nephrotoxic agents. (3) Leukocytosis: Onset Date: ~11/2019 Code(s): D72.829 - Elevated white blood cell count, unspecified Status: Acute Assessment and Plan: Appears to be secondary to acute cholecystitis. * Improved with IV antibiotics. Continue broad-spectrum IV antibiotics. Monitor CBCD (4) Paroxysmal A-fib: Code(s): I48.0 - Paroxysmal atrial fibrillation Status: Chronic Assessment and Plan: Patient is in AFib but is rate has been controlled. * I discussed with surgery who feels he can continue anticoagulation. * Restart Beta rod and BP medications. * Rate controlled. Continue monitoring. 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 H&H stable. (6) CAD (coronary artery disease): Qualifiers: Coronary Disease-Associated Artery/Lesion type: [place] artery [place] vs. transplanted heart: [place] heart Associated angina: without angina Qualified Code(s): I25.10 - Atherosclerotic heart disease of [place] coronary artery without angina pectoris Code(s): I25.10 - Atherosclerotic heart disease of [place] coronary artery without angina pectoris
--- NOTE | 2019-12-17 12:11 | PM.IMPN ---
Progress Note: A&P Assessment and Plan (1) Acute cholecystitis: Code(s): K81.0 - Acute cholecystitis Status: Acute Assessment and Plan: The patient has been admitted for observation to med surg, NPO, bowel rest, continue wide-spectrum antibiotics with IV Zosyn, blood cultures pending. Right upper quadrant ultrasound showed acute cholecystitis, diffuse hepatic steatosis. General surgery evaluated the patient and since his symptoms began greater than 48 hours ago and with his cardiac history, they decided to place a percutaneous drain of the gallbladder on 12/15/2019. Dr. Lobo recommends the patient following up with his beater room supervisor as an outpatient for cardiac clearance for surgery. Dr. Lobo also recommends the patient have surgery at [facility] where his beater room supervisor is located in case there is any issues. We can still give him Dr. Lobo's information in case he wants to come here for surgery. Patient is feeling better after perc drain placed. Advance diet to diabetic. Surgery wants to continue monitoring his symptoms and output. GB Sludge culture showing no growth at this time. Continue IV antibiotics until sensitivity results come back for gallbladder material culture. Continue monitoring the patient. Pain control with IV narcotic medications, antiemetics, antipyretics. 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 creatinine improved to 1.1. His labs from over 1 year ago showing normal creatinine of 0.9-1. He is now eating and drinking without issues. Will stop IV Fluids and consider restarting diuretics in the morning At this time he remains euvolemic. Monitor urine output and renal function. Renally dose medications. Avoid nephrotoxic agents. (3) Leukocytosis: Onset Date: ~11/2019 Code(s): D72.829 - Elevated white blood cell count, unspecified Status: Acute Assessment and Plan: Appears to be secondary to acute cholecystitis. Improved with IV antibiotics. Continue broad-spectrum IV antibiotics. Monitor CBCD (4) Paroxysmal A-fib: Code(s): I48.0 - Paroxysmal atrial fibrillation Status: Chronic Assessment and Plan: Patient is in AFib but is rate has been controlled. I discussed with surgery who feels he can continue anticoagulation. Restart Beta rod and BP medications. Rate controlled. Continue monitoring. (5) Chronic anticoagulation: Onset Date: Unknown Code(s): Z79.01 - [facility] (current) use of anticoagulants Status: Chronic Assessment and Plan: Continue anticoagulation. H&H stable. (6) CAD (coronary artery disease): Qualifiers: Coronary Disease-Associated Artery/Lesion type: [place] artery [place] vs. transplanted heart: [place] heart Associated angina: without angina Qualified Code(s): I25.10 - Atherosclerotic heart disease of [place] coronary artery without angina pectoris Code(s): I25.10 - Atherosclerotic heart disease of [place] coronary artery without angina pectoris Status: Chronic Assessment and Plan: No chest pain tonight. Will continue Plavix and Xarelto. Usually we do not use aspirin 81 mg along with Plavix and Xarelto, so I will hold this at this time. Continue BB and BP medications (7) Dyslipidemia: Code(s): E78.5 - Hyperlipidemia, unspecified
[2019-12-17 13:02] LABS: Glucose Point of Care 217 (65-105)
[2019-12-17 14:00] VITALS: BP 152/64; PULSE 64; RESP 20; TEMP 36.3; O2SAT 97
[2019-12-17] MEDS: RIVAROXABAN 20 MG TABLET PO (17:06)
[2019-12-17 17:45] LABS: Glucose Point of Care 115 (65-105)
[2019-12-17] MEDS: TAMSULOSIN HCL 0.4 MG CAPSULE 0.8 MG PO (20:35)
[2019-12-17 20:36] VITALS: PULSE 96
[2019-12-17] MEDS: SIMVASTATIN 20 MG TABLET PO (20:36)
[2019-12-17 21:19] LABS: Glucose Point of Care 137 (65-105)
[2019-12-17 22:00] VITALS: BP 128/58; PULSE 72; RESP 20; TEMP 36.6; O2SAT 95
[2019-12-18] MEDS: HYDROcodone/acetaminophen (*CRX) 5-325 MG TABLET 1 TAB PO ×2 (02:44→12:32)
[2019-12-18 06:00] VITALS: BP 151/69; PULSE 72; RESP 20; TEMP 36.3; O2SAT 94
[2019-12-18 06:14] LABS: Hemoglobin 11.2 g/dL (14.0-18.0)
[2019-12-18 06:24] LABS: Anion Gap 8 mmol/L (8-16); Blood Urea Nitrogen 17 mg/dL (9-20); Calcium 8.8 mg/dL (8.4-10.2); Carbon Dioxide 28 mmol/L (22-30); Chloride 101 mmol/L (98-107); Estimated CRCL calculation 70 ml/min; Estimated Glomerular Filt Rate > 60; Glucose 220 mg/dL (75-110); Potassium 3.8 mmol/L (3.4-5.0); Sodium 137 mmol/L (137-145)
[2019-12-18] MEDS: FLUTICASONE PROP 44 MCG (*SP) 10.6 GM 1 PUFF INHALATION (07:55)
[2019-12-18] MEDS: INSULIN ASPART (*BKC) 100 UNITS/ML 12 UNITS SUB-Q ×2 (08:20→12:33)
[2019-12-18] MEDS: INSULIN ASPART (*BKC) 100 UNITS/ML SUB-Q ×2 (08:21→12:33)
[2019-12-18] MEDS: INSULIN GLARGINE (*BKC) 100 UNITS/ML 30 UNITS SUB-Q (08:23)
[2019-12-18 08:41] LABS: Glucose Point of Care 218 (65-105)
[2019-12-18 08:57] VITALS: PULSE 64
[2019-12-18] MEDS: carvediloL 3.125 MG TABLET PO (08:57)
[2019-12-18] MEDS: CLOPIDOGREL BISULFATE 75 MG TABLET PO (08:57)
[2019-12-18] MEDS: FINASTERIDE 5 MG TABLET PO (08:58)
[2019-12-18] MEDS: FLUTICASONE PROPIONATE 0.05% NA SPR 16 GM BTL (*BKC) 1 SPRAY NASAL (08:58)
[2019-12-18] MEDS: LORATADINE 10 MG TABLET PO (08:58)
[2019-12-18] MEDS: NEOMYCIN/POLYMYXIN/BACITRACIN OINTMENT 15 GM TUBE 1 APPLIC TOPICAL (08:58)
[2019-12-18] MEDS: SILVERGEL (ELTA) 45 ML 1 APPLIC TOPICAL (08:58)
[2019-12-18] MEDS: PANTOPRAZOLE SODIUM IV 40 MG VIAL IV PUSH (08:59)
[2019-12-18] MEDS: SACUBITRIL/VALSARTAN 24-26 MG TABLET 1 TAB PO (08:59)
--- NOTE | 2019-12-18 10:05 | ECG_ITS ---
Measurements Intervals [place] Rate: 66 P: -25 ID: [id number] QRS: -54 QRSD: 67 T: 3 QT: 389 QTc: 408 Interpretive Statements ATRIAL SENSE- ELECTRONIC VENTRICULAR PACEMAKER VENTRICULAR PREMATURE COMPLEX BASELINE ARTIFACT- V5 NO FURTHER INTERPRETATION IS POSSIBLE ATYPICAL ECG Electronically Signed On 12-18-2019 16:51:51 CDT by Cooper Crowder D.O.
--- NOTE | 2019-12-18 10:48 | PM.DS ---
DS: Admitting Diagnosis Admitting Diagnosis Admitting Diagnosis: cholecystitis DS: Discharge Diagnosis Discharge Diagnosis (1) Acute cholecystitis: Code(s): K81.0 - Acute cholecystitis Status: Acute Assessment and Plan: The patient has been admitted for observation to med surg, NPO, bowel rest, continue wide-spectrum antibiotics with IV Zosyn, blood cultures pending. Right upper quadrant ultrasound showed acute cholecystitis, diffuse hepatic steatosis. General surgery evaluated the patient and since his symptoms began greater than 48 hours ago and with his cardiac history, they decided to place a percutaneous drain of the gallbladder on 12/15/2019. Dr. Lobo recommends the patient following up with his stoker installation mechanic as an outpatient for cardiac clearance for surgery. Dr. Lobo also recommends the patient have surgery at [facility] where his stoker installation mechanic is located in case there is any issues. We can still give him Dr. Lobo's information in case he wants to come here for surgery. Patient is feeling much better today. He is eating and drinking without any issues in on diabetic diet. Fluid specimen from perc drain shows no growth in the aerobic culture, anaerobic culture shows no organism or white blood cells seen but is still pending culture results. We will continue monitoring At this time I talked to surgery and they feel comfortable with him being discharged to continue on ciprofloxacin for 10 days and to keep perc drain in place for about 4 weeks. The patient understands the plan with getting cardiac clearance and seen if he can have a surgeon at [facility] in [place] where his stoker installation mechanic is located and if not Dr. Lobo will gladly have him follow-up after his cardiac clearance. Patient understands and agrees the plan all questions answered. 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 creatinine improved to 1.1. His labs from over 1 year ago showing normal creatinine of 0.9-1. He is now eating and drinking without issues. At this time he remains euvolemic. (3) Leukocytosis: Onset Date: ~11/2019 Code(s): D72.829 - Elevated white blood cell count, unspecified Status: Acute Assessment and Plan: Appears to be secondary to acute cholecystitis. Normalized. Continue antibiotics for acute cholecystitis (4) Paroxysmal A-fib: Code(s): I48.0 - Paroxysmal atrial fibrillation Status: Chronic Assessment and Plan: Patient is in AFib but is rate has been controlled. Continue home medications. His AFib has been rate controlled since arrival. 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 H&H stable. (6) CAD (coronary artery disease): Qualifiers: Associated angina: without angina Coronary Disease-Associated Artery/Lesion type: [place] artery [place] vs. transplanted heart: [place] heart Qualified Code(s): I25.10 - Atherosclerotic heart disease of [place] coronary artery without angina pectoris Code(s): I25.10 - Atherosclerotic heart disease of [place] coronary artery without angina pectoris Status: Chronic Assessment and Plan: No chest pain tonight. Will continue Plavix and Xarelto. Usually we do not use aspiri
[2019-12-18 12:49] LABS: Glucose Point of Care 255 (65-105)
--- NOTE | 2019-12-18 13:15 | PCPTNOTE ---
Attempted to see patient for Physical Therapy, however patient stated that he is going home. Therapist educated patient and his family member on HEP. No questions noted.
[2019-12-19 14:21] LABS: Glucose Point of Care 144 (65-105)
== END 2019-12-18 13:35 | disposition home health service (06) | DRG 445 ==
LOC: ANHED 01:34 → ANH3MEDSUR 02:52
PROVIDERS: Physician Assistant; Surgery; Admitting Provider Family Medicine; Emergency Provider Emergency Medicine; PCP Internal Medicine; Visit Provider Internal Medicine
DX: K81.0 Acute cholecystitis (principal); N17.9 Acute kidney failure, unspecified; I13.0 Hypertensive heart and chronic kidney disease with heart failure and stage 1 through stage 4 chronic kidney disease, or unspecified chronic kidney disease; I50.42 Chronic combined systolic (congestive) and diastolic (congestive) heart failure; Z68.41 Body mass index [BMI] 40.0-44.9, adult; E11.22 Type 2 diabetes mellitus with diabetic chronic kidney disease; N18.30 Chronic kidney disease, stage 3 unspecified; Z20.828 Contact with and (suspected) exposure to other viral communicable diseases; D72.829 Elevated white blood cell count, unspecified; I48.0 Paroxysmal atrial fibrillation; I25.10 Atherosclerotic heart disease of native coronary artery without angina pectoris; E78.5 Hyperlipidemia, unspecified; G47.33 Obstructive sleep apnea (adult) (pediatric); N40.0 Benign prostatic hyperplasia without lower urinary tract symptoms; E66.01 Morbid (severe) obesity due to excess calories; I87.8 Other specified disorders of veins; Z79.01 Long term (current) use of anticoagulants; Z79.02 Long term (current) use of antithrombotics/antiplatelets; I25.2 Old myocardial infarction; Z95.1 Presence of aortocoronary bypass graft; Z79.4 Long term (current) use of insulin; Z95.0 Presence of cardiac pacemaker; Z87.891 Personal history of nicotine dependence
CPT/HCPCS: 36415; 47490; 74176; 76705; 80048; 80053; 81001; 83605; 83690; 83735; 85014; 85018; 85025; 85027; 85610; 86850; 86900; 86901; 87070; 87075; 87205; 87635; 93005; 94640; 96361; 96365; 96366; 96375; 96376; 97110; 97161; 97165; 97530; 97535; 99285; A9270; C9113; C9803; G0378; J0131; J1815; J2270; J2405; J2543; J7030; U0003

== ENCOUNTER 2020-05-23 16:42 | Outpatient (CLI) | payer MEDICARE, OTHER, SELFPAY ==
--- NOTE | ~2020-05-23 | XR_ITS ---
[XR ribs BI 3V w CXR 2V ] INDICATION: Right rib pain after fall TECHNIQUE: Frontal projection of the upper ribs, frontal projection of the lower ribs, oblique projec tion of all the ribs, frontal inspiratory chest x-ray for interpretation. FINDINGS: There is an acute right fourth rib fracture. There are healed right fifth, sixth and sevent h rib fractures. No pneumothorax. There is a pacemaker battery pack overlying the left upper chest pa rtially obscuring the left ribs. There is a coronary artery stent. Status post median sternotomy. IMPRESSION: 1: Acute nondisplaced right fourth rib fracture. Reviewed, dictated and finalized at location A. LLMENT MANAGEMENT DIRECTOR
== END 2020-05-23 16:43 | disposition home or self-care (01) ==
PROVIDERS: PCP Internal Medicine; Visit Provider Internal Medicine
DX: S22.31XA Fracture of one rib, right side, initial encounter for closed fracture (principal); R07.81 Pleurodynia
CPT/HCPCS: 71046; 71110

== ENCOUNTER 2021-08-06 13:08 | Emergency (ER) | payer MEDICARE, SELFPAY ==
--- NOTE | 2021-08-06 13:12 | ED.URI ---
HPI - URI/Sore Throat General Chief Complaint: Upper Respiratory Infection Stated Complaint: cough Time Seen by Provider: 08/06/21 13:14 Source: patient Mode of arrival: ambulatory Limitations: no limitations History of Present Illness HPI Narrative: Mr. Mckeon is a 81-year-old male patient presenting to the clinic today with complaints of productive cough x2 weeks. He reports he has been coughing so hard at times that he has felt like he is going to pass out. He denies any fever or chills but does have some mild shortness of breath. No known exposure to anybody with COVID, flu, or strep. Former smoker. Reports that he is coughing up yellow phlegm. MD elicited complaint: cough Related Data Home Medications Medication Instructions Recorded Confirmed aspirin 81 mg tablet,delayed 81 mg PO DAILY 01/11/19 07/25/21 release clopidogrel 75 mg tablet 75 mg PO DAILY 01/11/19 07/25/21 eplerenone 25 mg tablet 25 mg PO DAILY 01/11/19 07/25/21 finasteride 5 mg tablet 5 mg PO DAILY 01/11/19 07/25/21 fluticasone propionate 44 1 puff inhalation DAILY 01/11/19 07/25/21 mcg/actuation HFA aerosol inhaler nitroglycerin 0.4 mg sublingual 0.4 mg sublingual PRN PRN Chest 01/11/19 07/25/21 tablet Pain pantoprazole 40 mg tablet,delayed 40 mg PO QAM 01/11/19 07/25/21 release potassium chloride 20 mEq 20 meq PO BID 01/11/19 07/25/21 tablet,extended release sacubitril 24 mg-valsartan 26 mg 1 tablet PO BID 01/11/19 07/25/21 tablet tamsulosin 0.4 mg capsule 0.8 mg PO HS 01/11/19 07/25/21 loratadine 10 mg tablet 10 mg PO DAILY 04/11/19 07/25/21 ranolazine 1,000 mg 1,000 mg PO Q12H 04/11/19 07/25/21 tablet,extended release,12 hr (Ranexa) torsemide 20 mg tablet 40 mg PO QAM 04/11/19 07/25/21 rivaroxaban 20 mg tablet (Xarelto) 20 mg PO QPM 12/14/19 07/25/21 insulin aspart U-100 100 unit/mL See Rx Instructions subcut TID 04/11/20 07/25/21 subcutaneous solution (Novolog U-100 Insulin aspart) empagliflozin 25 mg tablet 12.5 mg PO DAILY 10/15/20 07/25/21 diclofenac sodium 1 % topical gel 2 g topical BID 07/22/21 07/25/21 (Arthritis Pain (diclofenac)) lidocaine 5 % topical patch 1 patch topical DAILY 07/22/21 07/25/21 metoprolol succinate 50 mg 50 mg PO DAILY 07/22/21 07/25/21 tablet,extended release 24 hr Allergies Allergy/AdvReac Type Severity Reaction Status Date / Time metformin Allergy Mild Nausea and Verified 07/22/21 09:03 Vomiting atorvastatin Allergy Unknown Swelling Verified 07/22/21 09:03 iodine Allergy Unknown Hives Verified 07/22/21 09:03 iohexol Allergy Unknown Hives Verified 07/22/21 09:03 [From CONTRAST - CT, XRAY] meloxicam Allergy Unknown rash Verified 07/22/21 09:03 spironolactone Allergy Unknown Other Verified 07/22/21 09:03 Review of Systems Review of Systems: Pertinent positives per HPI. Patient denies any fever, chills, rash, headache, visual changes, dizziness, runny nose, sore throat, shortness of breath, chest pain, palpitations, nausea, vomiting, diarrhea, constipation, abdominal pain, or any urinary issues. [facility] Past Medical History Medical History BPH (benign prostatic hyperplasia) CAD (coronary artery disease) Chronic combined systolic and diastolic CHF (congestive heart failure) (Unknown) CKD stage 3 due to type 2 diabetes mellitus Diabetes (Unknown) Dyslipidemia Essential hypertension Paroxysmal A-fib Surgical History Surgical History History of cataract surgery Hx of CABG Hx of cholecystectomy Pacemaker Family History Family History Mother Diabetes mellitus Hypertension Sibling Diabetes mellitus Family history of obesity Hypertension Social History Social History Smoking packs per day: 5 Smoking cigarettes per day:
[2021-08-06 13:23] VITALS: BP 121/60; PULSE 65; RESP 22; TEMP 36.1; O2SAT 98
== END 2021-08-06 13:37 | disposition home or self-care (01) ==
PROVIDERS: Emergency Provider Nurse Practitioner Family; PCP Family Medicine
DX: J20.9 Acute bronchitis, unspecified (principal); Z87.891 Personal history of nicotine dependence; N40.0 Benign prostatic hyperplasia without lower urinary tract symptoms; I25.10 Atherosclerotic heart disease of native coronary artery without angina pectoris; I13.0 Hypertensive heart and chronic kidney disease with heart failure and stage 1 through stage 4 chronic kidney disease, or unspecified chronic kidney disease; E11.22 Type 2 diabetes mellitus with diabetic chronic kidney disease; N18.30 Chronic kidney disease, stage 3 unspecified; I50.40 Unspecified combined systolic (congestive) and diastolic (congestive) heart failure; Z79.4 Long term (current) use of insulin; E78.5 Hyperlipidemia, unspecified; I48.0 Paroxysmal atrial fibrillation; Z95.1 Presence of aortocoronary bypass graft; Z95.0 Presence of cardiac pacemaker
CPT/HCPCS: 99213; G0463

== ENCOUNTER 2021-10-10 07:12 | Outpatient (RCR) | payer MEDICARE, SELFPAY ==
[2021-07-25 09:00] VITALS: BMI 42.6
== END 2021-10-23 23:59 | disposition home or self-care (01) ==
LOC: ANHWOC 07:12
PROVIDERS: PCP Family Medicine; Visit Provider Family Medicine
DX: L97.929 Non-pressure chronic ulcer of unspecified part of left lower leg with unspecified severity (principal); E11.59 Type 2 diabetes mellitus with other circulatory complications; E11.22 Type 2 diabetes mellitus with diabetic chronic kidney disease; I25.10 Atherosclerotic heart disease of native coronary artery without angina pectoris; I50.42 Chronic combined systolic (congestive) and diastolic (congestive) heart failure; N18.30 Chronic kidney disease, stage 3 unspecified; Z79.4 Long term (current) use of insulin
CPT/HCPCS: 99211; 99212; A9270; G0463